=== PATIENT | male | born 1945 | race Caucasian/White ===

== ENCOUNTER 2020-08-20 09:53 | Outpatient (REF) | payer MEDICARE, SELFPAY ==
[2020-08-20 10:30] LABS: MANUAL DIFF FLAG NO
[2020-08-20 10:40] LABS: Basophils Percent Auto 0.5 % (0-2); Eosinophils Absolute Auto 0.2 X10*3/uL (0.0-0.4); Eosinophils Percent Auto 2.6 % (0-4); Hemoglobin 14.9 g/dl (14.0-18.0); Imm Gran Abs Auto 0.02 X10*3/uL (0.00-0.03); Imm Gran Pct Auto 0.3 % (0.0-0.4); Lymphocytes Absolute Auto 1.6 X10*3/uL (1.2-4.9); Lymphocytes Percent Auto 26.7 % (20-40); Mean Corpuscular HGB Conc 33.1 g/dl (31.0-36.0); Mean Corpuscular Hemoglobin 32.9 pg (27.0-33.0); Mean Corpuscular Volume 99.3 fL (80-98); Monocytes Absolute Auto 0.7 X10*3/uL (0.1-1.2); Monocytes Percent Auto 12.5 % (2-11); Neutrophils Absolute Auto 3.4 X10*3/uL (2.0-8.3); Neutrophils Percent Auto 57.4 % (45-73); Platelet Count 321 X10*3/uL (160-400); Red Blood Count 4.53 X10*6/uL (4.60-5.80); Red Cell Distribution Width 13.5 % (11.0-16.0); White Blood Count 5.9 X10*3/uL (4.8-10.8)
[2020-08-20 11:12] LABS: Alanine Aminotransferase 28 U/L (0-40); Albumin Level 4.2 g/dL (3.5-5.0); Alkaline Phosphatase 72 U/L (39-117); Anion Gap 12 (12-20); Aspartate Amino Transferase 35 U/L (5-37); Bilirubin Total 0.6 mg/dL (0.0-1.0); Blood Urea Nitrogen 24 mg/dL (9-16); Calcium 9.2 mg/dL (8.4-10.2); Carbon Dioxide 30 mmol/L (22-29); Chloride 103 mmol/L (96-108); Cholesterol 253 mg/dL; Estimated Glomerular Filt Rate 54; Glucose Fasting 88 mg/dL (60-99); HDL Cholesterol 68 mg/dL; LDL Cholesterol Calculated 172 mg/dl; Sodium 140 mmol/L (135-145); Total Protein 6.8 g/dL (6.5-8.0); Triglycerides 65 mg/dL
[2020-08-20 12:13] LABS: Prostate Specific Antigen 4.87 ng/mL (<0.05-4.0)
== END 2020-08-20 09:54 | disposition home or self-care (01) ==
LOC: HO.LAB 09:53
PROVIDERS: Visit Provider Internal Medicine Medical Oncology
DX: Z00.00 Encounter for general adult medical examination without abnormal findings (principal); Z12.5 Encounter for screening for malignant neoplasm of prostate
CPT/HCPCS: 36415; 80053; 80061; 84153; 85025

== ENCOUNTER 2021-04-13 09:02 | Outpatient (REF) | payer MEDICARE, SELFPAY ==
[2021-04-13 10:33] LABS: MANUAL DIFF FLAG NO
[2021-04-13 10:44] LABS: Basophils Percent Auto 0.4 % (0-2); Eosinophils Absolute Auto 0.2 X10*3/uL (0.0-0.4); Hematocrit 43.8 % (42-52); Hemoglobin 14.4 g/dl (14.0-18.0); Imm Gran Abs Auto 0.01 X10*3/uL (0.00-0.03); Imm Gran Pct Auto 0.2 % (0.0-0.4); Lymphocytes Absolute Auto 1.7 X10*3/uL (1.2-4.9); Lymphocytes Percent Auto 36.4 % (20-40); Mean Corpuscular HGB Conc 32.9 g/dl (31.0-36.0); Mean Corpuscular Hemoglobin 32.7 pg (27.0-33.0); Mean Corpuscular Volume 99.5 fL (80-98); Mean Platelet Volume 9.4 fL (9.4-12.4); Monocytes Absolute Auto 0.6 X10*3/uL (0.1-1.2); Monocytes Percent Auto 12.2 % (2-11); Neutrophils Absolute Auto 2.2 X10*3/uL (2.0-8.3); Neutrophils Percent Auto 46.8 % (45-73); Platelet Count 302 X10*3/uL (160-400); Red Cell Distribution Width 13.5 % (11.0-16.0); White Blood Count 4.8 X10*3/uL (4.8-10.8)
[2021-04-13 10:57] LABS: Alanine Aminotransferase 26 U/L (0-40); Albumin Level 3.9 g/dL (3.5-5.0); Alkaline Phosphatase 66 U/L (39-117); Anion Gap 12 (12-20); Aspartate Amino Transferase 31 U/L (5-37); Bilirubin Total 0.7 mg/dL (0.0-1.0); Blood Urea Nitrogen 22 mg/dL (9-16); Calcium 9.3 mg/dL (8.4-10.2); Carbon Dioxide 26 mmol/L (22-29); Chloride 106 mmol/L (96-108); Cholesterol 252 mg/dL; Estimated Glomerular Filt Rate 57; Glucose Fasting 91 mg/dL (60-99); HDL Cholesterol 67 mg/dL; LDL Cholesterol Calculated 176 mg/dl; Potassium 4.7 mmol/L (3.3-5.1); Sodium 139 mmol/L (135-145); Total Protein 6.4 g/dL (6.5-8.0); Triglycerides 49 mg/dL
[2021-04-13 11:26] LABS: PSA,Total (Free>4and<10) 5.81 ng/mL (0.00-4.00)
[2021-04-14 12:56] LABS: Free Prostate Spec Ag 0.6 ng/mL; Percent Free Prostate Spec Ag 14 % (calc) (>25); Prostate Specific Ag Total 4.4 ng/mL (< OR = 4.0)
== END 2021-04-13 09:03 | disposition home or self-care (01) ==
LOC: HO.LAB 09:02
PROVIDERS: PCP Internal Medicine Medical Oncology; Visit Provider Internal Medicine Medical Oncology
DX: Z12.5 Encounter for screening for malignant neoplasm of prostate (principal); E78.2 Mixed hyperlipidemia; E66.3 Overweight
CPT/HCPCS: 36415; 80053; 80061; 84153; 84154; 85025

== ENCOUNTER 2021-08-12 09:26 | Outpatient (REF) | payer MEDICARE, SELFPAY ==
--- NOTE | ~2021-08-12 | XR_ITS ---
EXAMINATION: XR CHEST CLINICAL INFORMATION: Chest pain COMPARISON: Chest radiograph from 02/03/2012 TECHNIQUE: 2 views of the chest were obtained. FINDINGS: Mildly coarsened interstitial lung markings. Subtle nodular radiodensity involving the right lower lobe measuring 2.1 cm may represent summation artifact versus a focus of infectious/inflammatory etiology though parenchymal nodule is not excluded. Stable elevation of the left hemidiaphragm. Left basilar atelectasis versus scarring. No pneumothorax. Trachea is midline. Cardiomediastinal silhouette is not enlarged. No large pleural effusion. Degenerative changes of the thoracolumbar spine. Soft tissues are unremarkable. XR/XR chest 2V IMPRESSION: 1. Mildly coarsened interstitial lung markings. 2. Subtle nodular radiodensity involving the right lower lobe measuring 2.1 cm may represent summation artifact versus a focus of infectious/inflammatory etiology though parenchymal nodule is not excluded. 3. Stable elevation of the left hemidiaphragm. 4. Left basilar atelectasis versus scarring.
== END 2021-08-12 09:27 | disposition home or self-care (01) ==
LOC: HO.XRAY 09:26
PROVIDERS: PCP Internal Medicine Medical Oncology; Visit Provider Internal Medicine Medical Oncology
DX: R07.89 Other chest pain (principal)
CPT/HCPCS: 71046

== ENCOUNTER 2021-11-02 10:23 | Outpatient (REF) | payer MEDICARE, SELFPAY ==
--- NOTE | ~2021-11-02 | XR_ITS ---
EXAMINATION: XR CHEST CLINICAL INFORMATION: Shortness of breath COMPARISON: Chest x-ray 08/12/2021 TECHNIQUE: 2 views of the chest were obtained. FINDINGS: Cardiac silhouette is normal in size. The lungs are well inflated. There is similar asymmetric elevation of left hemidiaphragm. There is no lobar consolidation. Prior subtle nodular density of the right lower lobe is less prominent on today's imaging. No pleural effusion or pneumothorax. Mild to moderate degenerative changes of the spine. XR/XR chest 2V IMPRESSION: No acute pulmonary pathology.
== END 2021-11-02 10:24 | disposition home or self-care (01) ==
LOC: HO.XRAY 10:23
PROVIDERS: PCP Internal Medicine Medical Oncology; Visit Provider Internal Medicine Medical Oncology
DX: R06.02 Shortness of breath (principal)
CPT/HCPCS: 71046

== ENCOUNTER 2022-11-05 08:48 | Outpatient (REF) | payer MEDICARE, SELFPAY ==
--- NOTE | ~2022-11-05 | XR_ITS ---
EXAMINATION: Knee x-ray CLINICAL INFORMATION: Pain COMPARISON: None. TECHNIQUE: Standing AP view of both knees and lateral and sunrise view of the left eighth FINDINGS: Left: Bone alignment is normal. No fracture or dislocation. There is tricompartment arthritis with joint space narrowing and osteophyte formation. There is a large joint effusion. Standing AP view of the right knee demonstrates medial femoral tibial joint space narrowing. XR/XR knee standing BI IMPRESSION: Left knee arthritis and large joint effusion. Joint space narrowing at the right medial femoral tibial joint.
--- NOTE | ~2022-11-05 | XR_ITS ---
EXAMINATION: Knee x-ray CLINICAL INFORMATION: Pain COMPARISON: None. TECHNIQUE: Standing AP view of both knees and lateral and sunrise view of the left eighth FINDINGS: Left: Bone alignment is normal. No fracture or dislocation. There is tricompartment arthritis with joint space narrowing and osteophyte formation. There is a large joint effusion. Standing AP view of the right knee demonstrates medial femoral tibial joint space narrowing. XR/XR knee LT 2V IMPRESSION: Left knee arthritis and large joint effusion. Joint space narrowing at the right medial femoral tibial joint.
== END 2022-11-05 08:49 | disposition home or self-care (01) ==
LOC: HO.HOSX 08:48
PROVIDERS: Visit Provider Physician Assistant
DX: M17.12 Unilateral primary osteoarthritis, left knee (principal); M71.22 Synovial cyst of popliteal space [Baker], left knee; M25.561 Pain in right knee
CPT/HCPCS: 20610; 73560; 73565; 99202; J1040

== ENCOUNTER 2023-02-07 08:50 | Outpatient (AMB) | payer MEDICARE, SELFPAY ==
--- NOTE | 2023-02-07 08:55 | MHC.OFFVIS ---
Intake Vital Signs 02/07/23 08:56 Height 5 ft 11 in Weight 180 lb BMI 25.1 Intake Visit Reasons: O/V left knee fluid /req aspiration Intake Note: Vikram 77 yr old male presents today for his left knee s/p knee injection from 11/05/22. Patient states injection has provided good relief but he continues to experience mild discomfort along the lateral aspect of the knee with intermittent swelling. Allergies No Known Allergies Allergy (Verified 02/07/23 09:01) HPI O/V left knee fluid /req aspiration HPI Details 77-year-old male who returns to the office today for a follow-up of left knee pain. He states he has pain in left knee which occasionally radiates down to his leg. He has his last injection on 11/05/22 which provided him good relief, but he continues to experience mild discomfort along the lateral aspect of the knee with intermittent swelling. [facility] Social History Patient Tobacco Use Status: Never used Tobacco Current occupational status: retired Review of Systems Const All systems reviewed & are unremarkable except as noted in HPI and below Physical Exam Vital Signs: BMI result Body Mass Index 25.1 Const General: cooperative and no acute distress Orientation/consciousness: patient oriented x3 Resp Effort & Inspection: normal respiratory effort and able to speak in complete sentences Cardio Peripheral pulses: Peripheral pulses 2+ throughout Neuro General: patient oriented x3 Extrem Other: Left knee skin intact, no erythema or joint effusion. Tenderness lateral joint line.trace joint effusion present. Full ROM with crepitus. Negative Edward?s. No ligamentous laxity. NVI. Assessment & Plan Assessment & Plan (1) Osteoarthritis of left knee: Code(s): M17.12 - Unilateral primary osteoarthritis, left knee Plan We discussed options which include repeat injection and aspiration. However he is not having any pain or limitations today, so well hold off on this. An MRI of the left knee was ordered to further evaluate the ligamentous structures. Once the scan is complete he will see us back for a review. Orders: Orders MR knee LT wo con Today M17.12 - Unilateral primary osteoarthritis, left knee Patient Instructions: Scribed for Alvarez Troy PA-C, by Carlos Wright medical office manager, on 02/07/2023 at 9:00 AM Alvarez PATEL PA-C, have personally reviewed and agree with the information entered by the scribe. Coding Level of Care Code Est Pt Level 3 (32265) Diagnoses Osteoarthritis of left knee M17.12
[2023-02-07 08:56] VITALS: BMI 25.1
== END 2023-02-07 09:25 | disposition home or self-care (01) ==
PROVIDERS: PCP Internal Medicine Medical Oncology; Visit Provider Physician Assistant
DX: M17.12 Unilateral primary osteoarthritis, left knee (principal)
CPT/HCPCS: 99213

== ENCOUNTER → 2023-02-07 08:50 | Outpatient (BNVA) | payer MEDICARE, SELFPAY | PROVIDERS: PCP Internal Medicine Medical Oncology; Visit Provider Physician Assistant | DX: M17.12 Unilateral primary osteoarthritis, left knee (principal) | CPT/HCPCS: 99212 ==

== ENCOUNTER 2023-03-04 07:25 | Outpatient (REF) | payer MEDICARE, SELFPAY ==
--- NOTE | ~2023-03-04 | MR_ITS ---
EXAMINATION: MR KNEE WITHOUT CONTRAST, LEFT CLINICAL INFORMATION: Left knee pain and swelling. Osteoarthritis. COMPARISON: Left knee radiographs dated 11/05/2022. TECHNIQUE: MRI of the knee without contrast was performed using routine sequences on a high-field scanner. FINDINGS: MENISCI: Medial Meniscus: Significant attenuation of the meniscal body consistent with an inner margin tear measuring up to 1.5 cm in AP dimension. Nondisplaced oblique femoral articular surface tear extending to the posterior horn where there is additional inner margin and tibial articular surface fraying. Lateral Meniscus: Diffuse complex tearing of the lateral meniscus with significant attenuation of the meniscal body. There is an irregular, enlarged and heterogeneous meniscal flap superior to the meniscal body measuring up to 1.1 cm in craniocaudal dimension. Prominent inner margin tearing throughout the anterior and posterior horn/root junctions. LIGAMENTS: Cruciate: Diffuse thickening and increased T2 signal throughout the anterior cruciate ligament consistent with mucoid degeneration. Intact posterior cruciate ligament. Collateral: Intact EXTENSOR MECHANISM: Intact ARTICULAR CARTILAGE/BONE: Patellofemoral Compartment: Medial patellar facet articular cartilage signal heterogeneity. Tiny marginal osteophytes. Medial Compartment: Weight-bearing articular cartilage thinning and signal heterogeneity with areas of near full-thickness loss. Marginal osteophytes. Lateral Compartment: Full-thickness posterior weight-bearing articular cartilage loss with mild bony remodeling as well as subchondral cystic change and marrow edema. Additional full-thickness articular cartilage loss of the posterior [id number] lateral femoral condyle. Marginal osteophytes. JOINT FLUID AND BURSAE: Moderate joint effusion and moderate Hayes's cyst with synovitis. MR/MR knee LT wo con IMPRESSION: 1. Diffuse complex tearing of the lateral meniscus with significant attenuation of the meniscal body. Prominent inner margin tearing throughout the anterior and posterior horn/root junctions. Irregular meniscal flap superior to the meniscal body measuring up to 1.1 cm in craniocaudal dimension. 2. Inner margin tearing of the medial meniscal body with a nondisplaced oblique femoral articular surface tear extending through the posterior horn. 3. Mucoid degeneration of the anterior cruciate ligament. 4. Severe lateral as well as [id number] medial and mild patellofemoral compartment osteoarthritis. Moderate joint effusion and moderate Hayes's cyst with synovitis.
== END 2023-03-04 07:26 | disposition home or self-care (01) ==
LOC: HO.MRI 07:25
PROVIDERS: PCP Internal Medicine Medical Oncology; Visit Provider Physician Assistant
DX: M17.12 Unilateral primary osteoarthritis, left knee (principal)
CPT/HCPCS: 73721

== ENCOUNTER 2023-03-17 10:54 | Outpatient (AMB) | payer MEDICARE, SELFPAY ==
--- NOTE | 2023-03-17 10:56 | A.OFFVIS_ITS ---
Intake Vital Signs 03/17/23 10:59 Height 5 ft 11 in Weight 180 lb BMI 25.1 Intake Visit Reasons: OV-MRI Review (Left Knee) Intake Note: Vikram a 77 year old male who presents today for an MRI review of left knee. Patient reports he is doing well, he has had some improvement since his last visit. He denies pain today and will have intermittent swelling. Allergies No Known Allergies Allergy (Verified 03/17/23 11:01) HPI OV-MRI Review (Left Knee) HPI Details 77-year-old male who returns to the office today for an MRI review of left knee. He states he is doing well overall and his symptoms are currently improved since the last visit. He denies experiencing any pain but he does c/o intermittent swelling in his left knee. [facility] Social History Patient Tobacco Use Status: Never used Tobacco Current occupational status: retired Review of Systems Const All systems reviewed & are unremarkable except as noted in HPI and below Physical Exam Vital Signs: BMI result Body Mass Index 25.1 Const General: cooperative and no acute distress Orientation/consciousness: patient oriented x3 Resp Effort & Inspection: normal respiratory effort and able to speak in complete se ntences Cardio Peripheral pulses: Peripheral pulses 2+ throughout Neuro General: patient oriented x3 Extrem Other: Left knee skin intact, no erythema or joint effusion. Tenderness lateral joint line.trace joint effusion present. Full ROM with crepitus. Negative Edward?s. No ligamentous laxity. NVI. Results Reviewed Results Reviewed: MRI Left knee 03/04/23 IMPRESSION: 1. Diffuse complex tearing of the lateral meniscus with significant attenuation of the meniscal body. Prominent inner margin tearing throughout the anterior and posterior horn/root junctions. Irregular meniscal flap superior to the meniscal body measuring up to 1.1 cm in craniocaudal dimension. 2. Inner margin tearing of the medial meniscal body with a nondisplaced oblique femoral articular surface tear extending through the posterior horn. 3. Mucoid degeneration of the anterior cruciate ligament. 4. Severe lateral as well as [id number] medial and mild patellofemoral compartment osteoarthritis. Moderate joint effusion and moderate Hayes's cyst with synovitis. Assessment & Plan Assessment & Plan (1) Osteoarthritis of left knee: Code(s): M17.12 - Unilateral primary osteoarthritis, left knee Plan We reviewed his MRI today and options available. Because he is not significantly limited in his daily function and he is able to perform activities without pain, he will continue with conservative management i.e., modification of activities and steroid injection. He will see me back as needed. Patient Instructions: Scribed for Alvarez Troy PA-C, by Carlos Wright medical physics researcher, on 03/17/2023 at 11:00 AM YORDAN. Alvarez Rolle PA-C, have personally reviewed and agree with the information entered by the scribe. Coding Level of Care Code Est Pt Level 3 (10748) Diagnoses Osteoarthritis of left knee M17.12
[2023-03-17 10:59] VITALS: BMI 25.1
== END 2023-03-17 11:21 | disposition home or self-care (01) ==
PROVIDERS: PCP Internal Medicine Medical Oncology; Visit Provider Physician Assistant
DX: M17.12 Unilateral primary osteoarthritis, left knee (principal); S83.272A Complex tear of lateral meniscus, current injury, left knee, initial encounter
CPT/HCPCS: 99213

== ENCOUNTER → 2023-03-17 10:54 | Outpatient (BNVA) | payer MEDICARE, SELFPAY | PROVIDERS: PCP Internal Medicine Medical Oncology; Visit Provider Physician Assistant | DX: M17.12 Unilateral primary osteoarthritis, left knee (principal) | CPT/HCPCS: 99212 ==

== ENCOUNTER 2024-04-18 12:07 | Outpatient (REF) | payer MEDICARE, SELFPAY ==
[2024-04-18 12:30] LABS: MANUAL DIFF FLAG NO
[2024-04-18 12:47] LABS: Basophils Percent Auto 0.5 % (0-2); Eosinophils Absolute Auto 0.2 X10*3/uL (0.0-0.4); Eosinophils Percent Auto 2.1 % (0-4); Hematocrit 42.5 % (42.0-52.0); Hemoglobin 14.8 g/dl (14.0-18.0); Imm Gran Abs Auto 0.02 X10*3/uL (0.00-0.03); Imm Gran Pct Auto 0.3 % (0.0-0.4); Lymphocytes Absolute Auto 1.8 X10*3/uL (1.2-4.9); Lymphocytes Percent Auto 24.2 % (20-40); Mean Corpuscular HGB Conc 34.8 g/dl (31.0-36.0); Mean Corpuscular Hemoglobin 34.5 pg (27.0-33.0); Mean Corpuscular Volume 99.1 fL (80.0-98.0); Mean Platelet Volume 8.6 fL (9.4-12.4); Monocytes Absolute Auto 0.8 X10*3/uL (0.1-1.2); Neutrophils Absolute Auto 4.7 x10*3/uL (2.0-8.3); Neutrophils Percent Auto 62.9 % (45-73); Platelet Count 277 X10*3/uL (160-400); Red Blood Count 4.29 X10*6/uL (4.60-5.80); Red Cell Distribution Width 13.4 % (11.0-16.0); White Blood Count 7.5 X10*3/uL (4.8-10.8)
[2024-04-18 13:30] LABS: Alanine Aminotransferase 27 U/L (0-40); Albumin Level 4.1 g/dL (3.5-5.0); Alkaline Phosphatase 67 U/L (39-117); Anion Gap 14 (12-20); Aspartate Amino Transferase 32 U/L (5-37); Bilirubin Total 0.3 mg/dL (0.0-1.0); Blood Urea Nitrogen 22 mg/dL (9-16); Calcium 10.4 mg/dL (8.4-10.2); Carbon Dioxide 29 mmol/L (22-29); Chloride 103 mmol/L (96-108); Cholesterol 252 mg/dL (<200); Estimated Glomerular Filt Rate > 60; Glucose Fasting 100 mg/dL (60-99); HDL Cholesterol 63 mg/dL (>40); LDL Cholesterol Calculated 167 mg/dL (<100); Potassium 4.6 mmol/L (3.3-5.1); Sodium 141 mmol/L (135-145); Triglycerides 110 mg/dL (<150)
[2024-04-18 13:41] LABS: Prostate Specific Antigen 6.49 ng/mL (<0.05-4.0)
== END 2024-04-18 12:08 | disposition home or self-care (01) ==
LOC: HO.LAB 12:07
PROVIDERS: PCP Internal Medicine Medical Oncology; Visit Provider Internal Medicine Medical Oncology
DX: Z00.00 Encounter for general adult medical examination without abnormal findings (principal); E66.3 Overweight; E78.2 Mixed hyperlipidemia; N40.0 Benign prostatic hyperplasia without lower urinary tract symptoms; Z12.5 Encounter for screening for malignant neoplasm of prostate
CPT/HCPCS: 36415; 80053; 80061; 84153; 85025

== ENCOUNTER 2025-04-24 10:21 | Outpatient (REF) | payer MEDICARE, SELFPAY ==
[2025-04-24 10:38] LABS: MANUAL DIFF FLAG NO
[2025-04-24 10:51] LABS: Hematocrit 42.2 % (42.0-52.0); Hemoglobin 14.4 g/dl (14.0-18.0); Imm Gran Abs Auto 0.01 X10*3/uL (0.00-0.03); Imm Gran Pct Auto 0.2 % (0.0-0.4); Lymphocytes Absolute Auto 1.6 X10*3/uL (1.2-4.9); Mean Corpuscular HGB Conc 34.1 g/dl (31.0-36.0); Mean Corpuscular Hemoglobin 33.7 pg (27.0-33.0); Mean Corpuscular Volume 98.8 fL (80.0-98.0); NRBC Abs Auto 0.000 X10*3/uL (0.0-0.012); NRBC Pct Auto 0.0 /100WBC (0.0-0.2); Platelet Count 285 X10*3/uL (160-400); Red Blood Count 4.27 X10*6/uL (4.60-5.80); White Blood Count 4.5 X10*3/uL (4.8-10.8)
[2025-04-24 11:47] LABS: Alanine Aminotransferase 36 U/L (0-40); Albumin Level 4.4 g/dL (3.5-5.0); Alkaline Phosphatase 79 U/L (39-117); Anion Gap 11 (12-20); Aspartate Amino Transferase 36 U/L (5-37); Blood Urea Nitrogen 22 mg/dL (9-16); Calcium 9.8 mg/dL (8.4-10.2); Carbon Dioxide 32 mmol/L (22-29); Chloride 107 mmol/L (96-108); Cholesterol 261 mg/dL (<200); Estimated Glomerular Filt Rate > 60; HDL Cholesterol 65 mg/dL (>40); Magnesium 2.1 mg/dL (1.6-2.6); Potassium 4.7 mmol/L (3.3-5.1); Sodium 145 mmol/L (135-145); Total Protein 6.8 g/dL (6.5-8.0); Triglycerides 64 mg/dL (<150)
[2025-04-24 11:49] LABS: Thyroid Stimulating Hormone 1.20 uIU/mL (0.32-4.0)
[2025-04-24 11:57] LABS: Prostate Specific Antigen 6.04 ng/mL (<0.05-4.0)
== END 2025-04-24 10:22 | disposition home or self-care (01) ==
LOC: HO.LAB 10:21
PROVIDERS: PCP Internal Medicine Medical Oncology; Visit Provider Internal Medicine Medical Oncology
DX: Z12.5 Encounter for screening for malignant neoplasm of prostate (principal); N40.0 Benign prostatic hyperplasia without lower urinary tract symptoms; E66.3 Overweight; E78.2 Mixed hyperlipidemia; R53.83 Other fatigue
CPT/HCPCS: 36415; 80053; 80061; 83735; 84153; 84443; 85025